=== PATIENT | female | born 1940 | race Caucasian/White ===

== ENCOUNTER 2018-01-23 19:00 | Observation (INO) | payer OTHER ==
--- NOTE | 2018-01-23 19:17 | PDOC ---
History of Present Illness - General History Source: Patient Exam Limitations: No Limitations - History of Present Illness Initial Comments: 01/23/18 20:04 A portion of this note was documented by scribe services under my direction. I have reviewed the details of the note, within reason, and agree with the documentation with the following case summary and management plan written by me. Patient treated in the ED. Nursing notes are reviewed and incorporated into the medical decision-making. Vital signs reviewed. Assessment and plan: This is 77-year-old female who comes in complaining of palpitations, dizziness,and mild nausea and approximate 3 hours of right upper extremity weakness. Patient also said it was preceded by headache however headache resolved shortly after onset of symptoms where his symptoms persisted about 3 hours. Patient said until symptoms have resolved at this. Patient denies history of similar symptoms in the past. Patient has history significant for mastoiditis in the past patient denies any associated tinnitus. Workup initiated including CBC, comp, EKG, cardiac enzymes, chest x-ray, head CT. NIH stroke scale was 0 Patient will be placed in an observation bed overnight for further evaluation and workup. <Emma Estrada I - Last Filed: 01/23/18 20:30> - History of Present Illness Initial Comments: This is a 77 year old female, with no significant past medical history, who presents to the emergency department today complaining of a headache and dizziness for a few hours earlier today. Patient notes around 3pm today she had a headache and began feeling as is if she was spinning while at work. She describes it as feeling disoriented, nauseous, inability to focus, and notes she did not have the strength in her right hand to write. She also states that her heart was beating faster than usual, and felt heavy in her chest. Patient notes that these symptoms lasted for approximately 3 hours. Patient reports feeling asymptomatic at this time, but does notes that she still feels strange . The patient denies shortness of breath. Denies fever, chills, vomit, diarrhea and constipation. Denies dysuria, frequency, urgency and hematuria. PAST MEDICAL HISTORY: no significant history PAST SURGICAL HISTORY: no significant history FAMILY HISTORY: DM SOCIAL HISTORY: Pt lives with family and is employed. Denies tobacco or recreational drug use. MEDICATIONS: reviewed ALLERGIES: As per nursing notes PCP: Dr. Kymberly CUNHA General: +Right upper extremity weakness. No fevers or chills, no weight loss. HEENT: No change in vision. No sore throat. No ear pain CardioVascular: +Palpitations. +Chest heaviness. No shortness of breath Respiratory: No cough, or wheezing. Gastrointestinal: +Mild nausea. no vomiting, diarrhea or constipation, No rectal bleeding Genitourinary: No dysuria, hematuria, or frequency Musculoskeletal: No joint or muscle pain or swelling Neurologic: +Headache. +Self-spinning dizziness. +Disoriented. +Inability to focus. No, vertigo or loss of consciousness. Psychiatric: nor depression Skin: No rashes or easy bruising Endocrine: no increased thirst or abnormal weight change Allergic: no skin or latex allergy All other systems reviewed and normal Exam: General: Well-nourished well-developed individual, no acute distress HEENT: Throat: Normal, tonsils normal, no erythema or exudate Neck: Supple, no meningeal signs, no lymphadenopathy Eyes::Pupils equal reactive and round, extraocular motion intact Chest: Nontender to palpation Cardiac: S1-S2 normal, regular rate and rhythm, no murmurs rubs or gallops Respiratory: Lungs clear to auscultation bilateral Abdomen: Soft, nondistended, normal bowel sounds, nontender to palpation diffusely Extremities: Warm, dry, no cyanosis, clubbing, or edema Skin: No rashes Neuro: Alert and oriented x3, nonfocal exam, grossly intact, normal gait Psych: Normal mood and affect 01/23/18 20:10 <China Cota - Last Filed: 01/23/18 21:50> - General Chief Complaint: Lightheaded Stated Complaint: DIZZY,FAST HEARTBEAT Time Seen by Provider: 01/23/18 19:14 Past History - Suicide/Smoking/Psychosocial Hx Smoking History: Never smoked Have you smoked in the past 12 months: No Hx Alcohol Use: No Drug/Substance Use Hx: No Substance Use Type: None Hx Substance Use Treatment: No <Emma Estrada I - Last Filed: 01/23/18 20:30> <China Cota - Last Filed: 01/23/18 21:50> - Past Medical History Allergies/Adverse Reactions: Allergies Allergy/AdvReac Type Severity Reaction Status Date / Time No Known Allergies Allergy Verified 01/23/18 19:01 Home Medications: Ambulatory Orders Zolpidem Tartrate [Ambien] 5 mg PO HS PRN 08/21/15 *Physical Exam - Vital Signs Last Vital Signs Temp Pulse Resp BP Pulse Ox 98.4 F 80 20 190/96 H 100 01/23/18 19:01 01/23/18 19:01 01/23/18 19:01 01/23/18 19:01 01/23/18 19:01 <China Cota - Last Filed: 01/23/18 21:50> Moderate Sedation - Procedure Monitoring Vital Signs: Procedure Monitoring Vital Signs Temperature 98.4 F 01/23/18 19:01 Pulse Rate 80 01/23/18 19:01 Respiratory Rate 20 01/23/18 19:01 Blood Pressure 190/96 H 01/23/18 19:01 O2 Sat by Pulse Oximetry (%) 100 01/23/18 19:01 <China Cota - Last Filed: 01/23/18 21:50> ED Treatment Course - LABORATORY CBC & Chemistry Diagram: 01/23/18 19:57 01/23/18 19:57 <Emma Estrada I - Last Filed: 01/23/18 20:30> - LABORATORY CBC & Chemistry Diagram: 01/23/18 19:57 01/23/18 19:57 - RADIOLOGY Radiograph Interpretation: 01/23/18 21:46 Chest X-Ray IMPRESSION: No acute disease. Reported By: Kulwinder Valencia MD 01/23/18 21:36. Head CT without contrast IMPRESSION: No evidence of intracranial pathology. Reported By: Kulwinder Valencia MD 01/23/18 21:21 01/23/18 21:49// <China Cota - Last Filed: 01/23/18 21:50> *DC/Admit/Observation/Transfer - Discharge Dispostion Decision to Admit order: Yes <Emma Estrada I - Last Filed: 01/23/18 20:30> - Attestations Scribe Attestion: 01/23/18 20:10 Documentation prepared by ANTONIO Zaman, acting as biomedical equipment technician for Emma Estrada MD. <China Cota - Last Filed: 01/23/18 21:50> Diagnosis at time of Disposition: TIA (transient ischemic attack)
[2018-01-23 20:11] LABS: URINE APPEARANCE Clear; URINE BILIRUBIN Negative (NEGATIVE); URINE COLOR Yellow; URINE GLUCOSE (UA) Negative (NEGATIVE); URINE KETONE Negative (NEGATIVE); URINE LEUK ESTERASE TRACE (NEGATIVE); URINE NITRITE Negative (NEGATIVE); URINE PROTEIN Negative (NEGATIVE); URINE UROBILINOGEN 0.2 (0.2-1.0)
[2018-01-23 20:11] LABS: BASO % 0.9 % (0-2.0); HEMATOCRIT 37.5 % (32.4-45.2); HEMOGLOBIN 12.2 GM/dl (10.7-15.3); LYMPH % 25.9 % (8-40); MCH 29.7 pg (25.7-33.7); MCHC 32.5 g/dl (32.0-36.0); MEAN CELL VOLUME 91.4 fl (80-96); MEAN PLT VOLUME 7.8 fl (7.5-11.1); MONO % 5.9 % (3.8-10.2); NEUT % 67.3 % (42.8-82.8); PLATELET COUNT 305 K/MM3 (134-434); RDW 13.2 % (11.6-15.6); WHITE BLOOD COUNT 3.8 K/mm3 (4.0-10.8)
[2018-01-23 20:27] LABS: ALBUMIN 4.5 g/dl (3.5-5.0); ALK PHOS 67 U/L (32-92); ANION GAP 8 MMOL/L (8-16); BILIRUBIN,TOTAL 0.6 mg/dl (0.2-1.0); BLOOD UREA NITROGEN 24 mg/dl (7-18); CALCIUM 9.8 mg/dl (8.4-10.2); CHLORIDE 103 mmol/L (98-107); CO2 26 mmol/L (22-28); CREATININE 0.7 mg/dl (0.6-1.3); GLUCOSE,RANDOM 95 mg/dl (74-106); POTASSIUM 3.7 mmol/L (3.5-5.1); SGOT/AST 20 U/L (10-42); SGPT/ALT 14 U/L (10-40); SODIUM 137 mmol/L (136-145); TOT PROT 6.8 g/dl (6.4-8.3)
[2018-01-23 21:14] LABS: URINE BACTERIA 1+ /hpf (NEGATIVE)
[2018-01-23] MEDS ORDERED: ACETAMINOPHEN 325 MG TABLET (FP) PO PRN (22:32)
[2018-01-23] MEDS: DOCUSATE SODIUM 100 MG CAPSULE (FP) PO SCH (22:49)
[2018-01-24] MEDS ORDERED: amLODIPine BESYLATE 5 MG TABLET (FP) PO STA (00:41)
--- NOTE | 2018-01-24 00:49 | HP ---
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 Pt reports right arm weakness, feeling "off balance", disoriented, visual disturbance and chest heaviness along with palpitations. she also had a brief headache which resolved after a few minutes. Pt had never experienced these symptoms before. After she became more oriented she decided to "GOOGLE" her symptoms and decided to proceed to local ED since may have had a "stroke". In Ed vitals were BP 169/68, HR 78, T 97.8, RR [address] negative for acute IC pathology. EKG NSR 75bpm, RBBB. Pt admitted for further workup of chest heaviness and palpitations. History Source: Patient Limitations to Obtaining History: No Limitations - Past Medical History ...: No - Past Surgical History Past Surgical History: Yes: Oopherectomy (right) - Smoking History Smoking history: Never smoked Have you smoked in the past 12 months: No - Alcohol/Substance Use Hx Alcohol Use: No History of Substance Use: reports: None - Social History Usual Living Arrangement: Yes: Alone ADL: Independent History of Recent Travel: No Home Medications - Allergies Allergies/Adverse Reactions: Allergies Allergy/AdvReac Type Severity Reaction Status Date / Time No Known Allergies Allergy Verified 01/23/18 19:01 - Home Medications Home Medications: Ambulatory Orders Zolpidem Tartrate [Ambien] 5 mg PO HS PRN 08/21/15 Family Disease History - Family Disease History Family Disease History: Other: Father ( (?) Leukemia), Mother ( (80) [place]), Sister (alive (82) h/o cervical cancer), Son (alive (49) DMII, [place]) Review of Systems - Review of Systems Constitutional: reports: No Symptoms Eyes: reports: Blurred Vision HENT: reports: No Symptoms Neck: reports: No Symptoms Cardiovascular: reports: Chest Pain, Palpitations Respiratory: reports: No Symptoms Gastrointestinal: reports: No Symptoms Genitourinary: reports: No Symptoms Breasts: reports: No Symptoms Reported Musculoskeletal: reports: No Symptoms Integumentary: reports: No Symptoms Neurological: reports: Change in Speech, Confusion, Dizziness, Headache, Weakness Endocrine: reports: No Symptoms Hematology/Lymphatic: reports: No Symptoms Psychiatric: reports: No Symptoms Physical Examination Vital Signs: Vital Signs Temperature 97.8 F 01/23/18 22:34 Pulse Rate 78 01/23/18 22:34 Respiratory Rate 20 01/23/18 22:34 Blood Pressure 169/68 01/23/18 22:34 O2 Sat by Pulse Oximetry (%) 100 01/23/18 22:34 Constitutional: Yes: Well Nourished, No Distress Eyes: Yes: Conjunctiva Clear, EOM Intact, PERRL HENT: Yes: Atraumatic, Normocephalic Neck: Yes: Supple, Trachea Midline Cardiovascular: Yes: Regular Rate and Rhythm Respiratory: Yes: Regular, CTA Bilaterally Gastrointestinal: Yes: Normal Bowel Sounds, Soft ...Rectal Exam: Yes: Deferred Musculoskeletal: Yes: WNL Extremities: Yes: WNL Edema: No Peripheral Pulses WNL: Yes Peripheral Pulses: Left Radial: 2+, Right Radial: 2+, Left Doralis Pedis: 2+, Right Dorsalis Pedis: 2+ Integumentary: Yes: WNL Neurological: Yes: Alert, Oriented ...Motor Strength: WNL Psychiatric: Yes: Alert, Oriented Labs: CBC, BMP 01/23/18 19:57 01/23/18 19:57 Imaging - Results Chest X-ray: Report Reviewed (CXR 01/23: no acute disease) Cat Scan: Report Reviewed (Head CT 01/23: no acute IC pathology) Problem List - Problems (1) Chest heaviness Assessment/Plan: echocardiogram ordered cards consult in AM serial trop Stress test if trops negative Code(s): R07.89 - OTHER CHEST PAIN (2) TIA (transient ischemic attack) Assessment/Plan: Start ASA 81mg Head CT negative f/u carotid doppler results Code(s): G45.9 - TRANSIENT CEREBRAL ISCHEMIC ATTACK, UNSPECIFIED (3) Chest pain Assessment/Plan: EKGs daily until d/c home continuous telemetry Code(s): R07.9 - CHEST PAIN, UNSPECIFIED Qualifiers: Chest pain type: unspecified Qualified Code(s): R07.9 - Chest pain, unspecified (4) DVT prophylaxis Assessment/Plan: Heparin SC TID OOB to chair Code(s): [id number] - Assessment/Plan bowel regimen with senna and colace Full code Visit type - Emergency Visit Emergency Visit: Yes ED Registration Date: 01/23/18 Care time: The patient presented to the Emergency Department on the above date and was hospitalized for further evaluation of their emergent condition. - New Patient This patient is new to me today: Yes Date on this admission: 01/24/18 - Critical Care Critical Care patient: No
[2018-01-24] MEDS: HEPARIN NA (PORCINE) 5,000 UNITS/ML 1ML VIAL SQ SCH ×3 (06:00→21:05)
[2018-01-24 08:20] LABS: BASO % 1.4 % (0-2.0); EOS % 0.1 % (0-4.5); HEMATOCRIT 38.2 % (32.4-45.2); HEMOGLOBIN 12.3 GM/dl (10.7-15.3); LYMPH % 29.6 % (8-40); MCH 29.5 pg (25.7-33.7); MCHC 32.2 g/dl (32.0-36.0); MEAN CELL VOLUME 91.7 fl (80-96); MEAN PLT VOLUME 8.2 fl (7.5-11.1); MONO % 6.5 % (3.8-10.2); NEUT % 62.4 % (42.8-82.8); PLATELET COUNT 322 K/MM3 (134-434); RBC 4.17 M/mm3 (3.60-5.2); RDW 13.4 % (11.6-15.6); WHITE BLOOD COUNT 3.1 K/mm3 (4.0-10.8)
[2018-01-24 08:57] LABS: ALBUMIN 3.9 g/dl (3.5-5.0); ALK PHOS 57 U/L (32-92); ANION GAP 5 MMOL/L (8-16); BILIRUBIN,TOTAL 0.6 mg/dl (0.2-1.0); BLOOD UREA NITROGEN 19 mg/dl (7-18); CALCIUM 9.4 mg/dl (8.4-10.2); CHLORIDE 104 mmol/L (98-107); CO2 27 mmol/L (22-28); CREATININE 0.7 mg/dl (0.6-1.3); GLUCOSE,RANDOM 96 mg/dl (74-106); MAGNESIUM 1.9 mg/dL (1.8-2.4); PHOSPHOROUS 3.7 mg/dl (2.5-4.6); POTASSIUM 4.7 mmol/L (3.5-5.1); SGOT/AST 17 U/L (10-42); SGPT/ALT 12 U/L (10-40); SODIUM 136 mmol/L (136-145); TOT PROT 5.9 g/dl (6.4-8.3)
[2018-01-24] MEDS ORDERED: PNEUMOC 13-VAL CONJ-DIP CRM/PF 0.5 ML DISP.SYRIN IM ONE (10:00)
[2018-01-24] MEDS: ASPIRIN COATED 81 MG TABLET.EC PO SCH (10:05)
[2018-01-24] MEDS: amLODIPine BESYLATE 5 MG TABLET (FP) PO SCH (10:05)
[2018-01-24] MEDS: DOCUSATE SODIUM 100 MG CAPSULE (FP) PO SCH ×2 (10:06→23:05)
--- NOTE | 2018-01-24 10:36 | CON.CARD ---
Consult Consult Specialty:: Cardiology Referred by:: Hospitalist Reason for Consultation:: Cardiac evaluation - History of Present Illness Chief Complaint: Dizziness History of Present Illness: Patient is a 77 year old female with no significant PMH who presented to ED with episode of confusion at work and feeling off balance, disoriented, dizzy and with visual disturbances. Patient states this was the first time for having these symptoms. She also stated some chest heaviness and palpitations. She also complained of brief headache which resolved. Her BP was elevated to 190's according to patient. Currently, she is asymptomatic. She denies chest pain, SOB or palpitations. She denies paroxsmal nocturnal dyspnea or orthopnea. She denies nausea, vomiting, diarrhea or abdominal pain. She denies headache or lightheadedness. Denies fever or chills. - History Source History Provided By: Patient, Medical Record Limitations to Obtaining History: No Limitations - Past Medical History ...: No - Past Surgical History Past Surgical History: Yes: Oopherectomy (right) - Alcohol/Substance Use Hx Alcohol Use: No History of Substance Use: reports: None - Smoking History Smoking history: Never smoked Have you smoked in the past 12 months: No - Social History ADL: Independent History of Recent Travel: No Home Medications - Allergies Allergies/Adverse Reactions: Allergies Allergy/AdvReac Type Severity Reaction Status Date / Time No Known Allergies Allergy Verified 01/23/18 19:01 - Home Medications Home Medications: Ambulatory Orders Zolpidem Tartrate [Ambien] 5 mg PO HS PRN 08/21/15 Family Disease History - Family Disease History Family Disease History: Other: Father ( (?) Leukemia), Mother ( (80) [place]), Sister (alive (82) h/o cervical cancer), Son (alive (49) DMII, [place]) Review of Systems - Review of Systems Constitutional: denies: Chills, Fever Cardiovascular: denies: Chest Pain, Palpitations, Shortness of Breath Respiratory: denies: Cough, Hemoptysis, Orthopnea, PND, SOB, SOB on Exertion Gastrointestinal: denies: Abdominal Pain, Constipation, Diarrhea, Melena, Nausea , Rectal Bleeding, Vomiting Musculoskeletal: denies: Back Pain, Extremity Pain, Joint Pain Neurological: reports: Confusion, Dizziness, Headache. denies: Seizure, Syncope Vital Signs: Vital Signs Temperature 97.5 F L 01/24/18 05:05 Pulse Rate 71 01/24/18 05:05 Respiratory Rate 20 01/24/18 05:52 Blood Pressure 136/57 L 01/24/18 05:05 O2 Sat by Pulse Oximetry (%) 100 01/24/18 05:52 Constitutional: Yes: Well Nourished Eyes: Yes: Conjunctiva Clear, PERRL HENT: Yes: Atraumatic Neck: Yes: Supple Respiratory: Yes: Regular, CTA Bilaterally Gastrointestinal: Yes: Normal Bowel Sounds, Soft. No: Tenderness Cardiovascular: Yes: Regular Rate and Rhythm JVD: No Carotid Bruit: No PMI: Non-Displaced Heart Sounds: Yes: S1, S2. No: Gallop Murmur: No: Systolic Murmur, Diastolic Murmur Edema: No - Other Data Labs, Other Data: CBC, BMP 01/24/18 07:35 Laboratory Results - last 24 hr 01/23/18 01/23/18 01/23/18 19:57 19:57 19:57 WBC 3.8 L RBC 4.10 Hgb 12.2 Hct 37.5 MCV 91.4 MCH 29.7 MCHC 32.5 RDW 13.2 Plt Count 305 MPV 7.8 Absolute Neuts (auto) 2.6 Neutrophils % 67.3 Lymphocytes % 25.9 Monocytes % 5.9 Eosinophils % 0.0 Basophils % 0.9 Sodium Potassium Chloride Carbon Dioxide Anion Gap BUN Creatinine Creat Clearance w eGFR Random Glucose Calcium Phosphorus Magnesium Total Bilirubin AST ALT Alkaline Phosphatase Creatine Kinase 91 Troponin I < 0.03 Total Protein Albumin Triglycerides Cholesterol Total LDL Cholesterol HDL Cholesterol Urine Color Urine Appearance Urine pH Ur Specific [place] Urine Protein Urine Glucose (UA) Urine Ketones Urine Blood Urine Nitrite Urine Bilirubin Urine Urobilinogen Ur Leukocyte Esterase Urine RBC Urine WBC Urine Bacteria 01/23/18 01/23/18 01/24/18 19:57 20:05 07:30 WBC RBC Hgb Hct MCV MCH MCHC RDW Plt Count MPV Absolute Neuts (auto) Neutrophils % Lymphocytes % Monocytes % Eosinophils % Basophils % Sodium 137 136 Potassium 3.7 4.7 D Chloride 103 104 Carbon Dioxide 26 27 Anion Gap 8 5 L BUN 24 H 19 H Creatinine 0.7 0.7 Creat Clearance w eGFR > 60 > 60 Random Glucose 95 96 Calcium 9.8 9.4 Phosphorus 3.7 Magnesium 1.9 Total Bilirubin 0.6 0.6 AST 20 17 ALT 14 12 Alkaline Phosphatase 67 57 D Creatine Kinase 54 Troponin I Total Protein 6.8 5.9 L Albumin 4.5 3.9 Triglycerides Cholesterol Total LDL Cholesterol HDL Cholesterol Urine Color Yellow Urine Appearance Clear Urine pH 7.0 Ur Specific [place] 1.020 Urine Protein Negative Urine Glucose (UA) Negative Urine Ketones Negative Urine Blood Trace-intact H Urine Nitrite Negative Urine Bilirubin Negative Urine Urobilinogen 0.2 Ur Leukocyte Esterase Trace H Urine RBC 2-5 Urine WBC 2-5 Urine Bacteria 1+ 01/24/18 01/24/18 01/24/18 07:30 07:35 07:35 WBC 3.1 L RBC 4.17 Hgb 12.3 Hct 38.2 MCV 91.7 MCH 29.5 MCHC 32.2 RDW 13.4 Plt Count 322 MPV 8.2 Absolute Neuts (auto) 2.0 Neutrophils % 62.4 Lymphocytes % 29.6 Monocytes % 6.5 Eosinophils % 0.1 Basophils % 1.4 Sodium Cancelled Potassium Cancelled Chloride Cancelled Carbon Dioxide Cancelled Anion Gap Cancelled BUN Cancelled Creatinine Cancelled Creat Clearance w eGFR Cancelled Random Glucose Cancelled Calcium Cancelled Phosphorus Cancelled Magnesium Cancelled Total Bilirubin Cancelled AST Cancelled ALT Cancelled Alkaline Phosphatase Cancelled Creatine Kinase Cancelled Troponin I < 0.03 Cancelled Total Protein Cancelled Albumin Cancelled Triglycerides Cancelled Cholesterol Cancelled Total LDL Cholesterol Cancelled HDL Cholesterol Cancelled Urine Color Urine Appearance Urine pH Ur Specific [place] Urine Protein Urine Glucose (UA) Urine Ketones Urine Blood Urine Nitrite Urine Bilirubin Urine Urobilinogen Ur Leukocyte Esterase Urine RBC Urine WBC Urine Bacteria Troponin, BNP 01/23/18 01/24/18 01/24/18 19:57 07:30 07:35 Troponin I < 0.03 < 0.03 Cancelled Echo: Pending Imaging - Results Chest X-ray: Report Reviewed (Unremarlable) Ultrasound: Report Reviewed (Carotid Doppler-atherosclerotic plaque) EKG: Report Reviewed Problem List - Problems (1) TIA (transient ischemic attack) Code(s): G45.9 - TRANSIENT CEREBRAL ISCHEMIC ATTACK, UNSPECIFIED (2) Chest pain Code(s): R07.9 - CHEST PAIN, UNSPECIFIED Qualifiers: Chest pain type: unspecified Qualified Code(s): R07.9 - Chest pain, unspecified (3) HTN (hypertension) Code(s): I10 - ESSENTIAL (PRIMARY) HYPERTENSION (4) Carotid artery disease Code(s): I77.9 - DISORDER OF ARTERIES AND ARTERIOLES, UNSPECIFIED Assessment/Plan 1. Transient dizziness, headache and confusion, rule out TIA 2. Chest pain syndrome, atypical 3. HTN 4. Carotid artery disease 5. ? Anxiety PLAN: 1. Cardiac enzymes are normal. Await echocardiography to assess LV/RV and valvular function 2. ASA 3. Continue Amlodipine 4. Further cardiac work up including treadmill stress testing and if negative discharge planning Further plans are to follow Ike Blanchard MD
--- NOTE | 2018-01-24 13:02 | EKG ---
Test Reason : Blood Pressure : / mmHG Vent. Rate : 075 BPM Atrial Rate : 075 BPM P-R Int : 156 ms QRS Dur : 136 ms QT Int : 434 ms P-R-T Axes : 053 031 -04 degrees QTc Int : 484 ms NORMAL SINUS RHYTHM RIGHT BUNDLE BRANCH BLOCK T WAVE ABNORMALITY, CONSIDER INFERIOR ISCHEMIA ABNORMAL ECG WHEN COMPARED WITH ECG OF 21-AUG-2015 09:14, RIGHT BUNDLE BRANCH BLOCK HAS REPLACED INCOMPLETE RIGHT BUNDLE BRANCH BLOCK Confirmed by Lars Chawla ([id number]) on 01/24/2018 1:02:41 PM Referred By: RERE Confirmed By:Lars Chawla
--- NOTE | 2018-01-24 14:25 | TRE ---
Protocol Name : LI Max Work Load (METS*10) : 80 Time In Exercise Phase : 00:06:42 Max. Systolic BP : 162 mmHg Max Diastolic BP : 60 mmHg Max Heart Rate : 148 BPM Max Predicted Heart Rate : 143 BPM Attending Physician : DR. CHAMBERS Reason For Termination : PROTOCOL COMPLETED, TARGET HEART RATE AVHIEVED Reason for Test : DIZZINESS, PALPITATION Stress Protocol : LI Rest HR : 99 BPM PeakEx METs : 8.0 METS Recovery ECG Response (OLD) : Diagnosis : The patient was stressed by the li protocol. Exercised on the treadmill for 6:42 min of the Li protocol. Baseline HR was 95 bpm, achieved maximum HR 148bpm (103%MPHR). Baseline BP 122/60mmHg, maximum BP 162/60mmHg Stopped exercise when target R was achieved. Resting ECG: NSR, RBBB Stress ECmm upsloping ST segment depressions in V4-V6 during exercise which resolved during recovery. Impressions Average exercise capacity with exagerated HR response and normal BP response to exercise. Abnormal ECG response with ischemic ECG changes during exercise. Confirmed by Lars Chawla ([id number]) on 01/24/2018 2:25:19 PM
--- NOTE | 2018-01-24 15:21 | ECHO ---
Name: EULOGIO MOORE Exam:Adult Echocardiogram Study Date: 01/24/2018 10:55 AM Age: 77 yrs Reason For Study: PT REPORTS CHEST HEAVINESS AND PALPITATIONS Height: 62 in Weight: 106 lb BSA: 1.5 m2 MMode/2D Measurements & Calculations IVSd: 0.81 cm Ao root diam: 2.5 cm LVIDd: 3.9 cm LA dimension: 2.8 cm LVIDs: 2.8 cm LVPWd: 0.71 cm EDV(Teich): 64.9 ml TAPSE: 2.6 cm ESV(Teich): 30.3 ml Doppler Measurements & Calculations MV E max natty: 53.3 cm/sec Ao V2 max: 121.8 cm/sec MV A max natty: 85.4 cm/sec Ao max P.9 mmHg MV E/A: 0.62 AI P1/2t: 455.0 msec MV dec time: 0.22 sec AI max natty: 439.8 cm/sec LV V1 max P.2 mmHg AI max P.4 mmHg LV V1 max: 74.7 cm/sec AI dec slope: 283.1 cm/sec2 MR max natty: 252.2 cm/sec TR max natty: 202.2 cm/sec MR max P.4 mmHg TR max P.4 mmHg PI end-d natty: 94.6 cm/sec Procedure A complete two-dimensional transthoracic echocardiogram was performed (2D, M-mode, Doppler and color flow Doppler). Left Ventricle The left ventricle is normal in size. Left ventricular systolic function is normal. The transmitral s pectral Doppler flow pattern is suggestive of impaired LV relaxation. The left ventricular wall motion is nor mal. Right Ventricle The right ventricle is normal size. The right ventricular systolic function is normal. Atria The left atrial size is normal. Right atrial size is normal. Mitral Valve The mitral valve is normal in structure and function. There is no mitral regurgitation noted. Tricuspid Valve The tricuspid valve is normal in structure and function. No tricuspid regurgitation. Right ventricula r systolic pressure is normal. Aortic Valve The aortic valve is normal in structure and function. Mild aortic regurgitation. Pulmonic Valve The pulmonic valve is not well seen, but is grossly normal. Great Vessels The aortic root is normal size. Pericardium/Pleura There is no pericardial effusion. Interpretation Summary Left ventricular systolic function is normal. The transmitral spectral Doppler flow pattern is suggestive of impaired LV relaxation. The right ventricular systolic function is normal. Mild aortic regurgitation. Lars Chawla 01/24/2018 03:21 PM
--- NOTE | 2018-01-24 16:26 | PN ---
Physical Exam: SUBJECTIVE: Patient seen and examined at bedside. Sons present. Feels well. No further episodes of lightheadedness or palpitations. OBJECTIVE: Vital Signs Period Temp Pulse Resp BP Sys/Iqbal Pulse Ox Last 24 Hr 97.4 F-98.6 F 70-89 16-20 108-190/56-96 95-100 GENERAL: The patient is awake, alert, and fully oriented, in no acute distress. LUNGS: Breath sounds equal, clear to auscultation bilaterally, no wheezes, no crackles, no accessory muscle use. HEART: Regular rate and rhythm, S1, S2 without murmur, rub or gallop. ABDOMEN: Soft, nontender, nondistended EXTREMITIES: 2+ pulses, warm, well-perfused, no edema. NEUROLOGICAL: Cranial nerves II through XII grossly intact. Normal speech, gait not observed. Self-positions easily. PSYCH: Normal mood, normal affect. SKIN: Warm, dry, normal turgor, no rashes or lesions noted Laboratory Results - last 24 hr 01/23/18 01/23/18 01/23/18 19:57 19:57 19:57 WBC 3.8 L RBC 4.10 Hgb 12.2 Hct 37.5 MCV 91.4 MCH 29.7 MCHC 32.5 RDW 13.2 Plt Count 305 MPV 7.8 Absolute Neuts (auto) 2.6 Neutrophils % 67.3 Lymphocytes % 25.9 Monocytes % 5.9 Eosinophils % 0.0 Basophils % 0.9 Sodium Potassium Chloride Carbon Dioxide Anion Gap BUN Creatinine Creat Clearance w eGFR Random Glucose Calcium Phosphorus Magnesium Total Bilirubin AST ALT Alkaline Phosphatase Creatine Kinase 91 Troponin I < 0.03 Total Protein Albumin Triglycerides Cholesterol Total LDL Cholesterol HDL Cholesterol Urine Color Urine Appearance Urine pH Ur Specific [place] Urine Protein Urine Glucose (UA) Urine Ketones Urine Blood Urine Nitrite Urine Bilirubin Urine Urobilinogen Ur Leukocyte Esterase Urine RBC Urine WBC Urine Bacteria 01/23/18 01/23/18 01/24/18 19:57 20:05 07:30 WBC RBC Hgb Hct MCV MCH MCHC RDW Plt Count MPV Absolute Neuts (auto) Neutrophils % Lymphocytes % Monocytes % Eosinophils % Basophils % Sodium 137 136 Potassium 3.7 4.7 D Chloride 103 104 Carbon Dioxide 26 27 Anion Gap 8 5 L BUN 24 H 19 H Creatinine 0.7 0.7 Creat Clearance w eGFR > 60 > 60 Random Glucose 95 96 Calcium 9.8 9.4 Phosphorus 3.7 Magnesium 1.9 Total Bilirubin 0.6 0.6 AST 20 17 ALT 14 12 Alkaline Phosphatase 67 57 D Creatine Kinase 54 Troponin I Total Protein 6.8 5.9 L Albumin 4.5 3.9 Triglycerides Cholesterol Total LDL Cholesterol HDL Cholesterol Urine Color Yellow Urine Appearance Clear Urine pH 7.0 Ur Specific [place] 1.020 Urine Protein Negative Urine Glucose (UA) Negative Urine Ketones Negative Urine Blood Trace-intact H Urine Nitrite Negative Urine Bilirubin Negative Urine Urobilinogen 0.2 Ur Leukocyte Esterase Trace H Urine RBC 2-5 Urine WBC 2-5 Urine Bacteria 1+ 01/24/18 01/24/18 01/24/18 07:30 07:35 07:35 WBC 3.1 L RBC 4.17 Hgb 12.3 Hct 38.2 MCV 91.7 MCH 29.5 MCHC 32.2 RDW 13.4 Plt Count 322 MPV 8.2 Absolute Neuts (auto) 2.0 Neutrophils % 62.4 Lymphocytes % 29.6 Monocytes % 6.5 Eosinophils % 0.1 Basophils % 1.4 Sodium Cancelled Potassium Cancelled Chloride Cancelled Carbon Dioxide Cancelled Anion Gap Cancelled BUN Cancelled Creatinine Cancelled Creat Clearance w eGFR Cancelled Random Glucose Cancelled Calcium Cancelled Phosphorus Cancelled Magnesium Cancelled Total Bilirubin Cancelled AST Cancelled ALT Cancelled Alkaline Phosphatase Cancelled Creatine Kinase Cancelled Troponin I < 0.03 Cancelled Total Protein Cancelled Albumin Cancelled Triglycerides Cancelled Cholesterol Cancelled Total LDL Cholesterol Cancelled HDL Cholesterol Cancelled Urine Color Urine Appearance Urine pH Ur Specific [place] Urine Protein Urine Glucose (UA) Urine Ketones Urine Blood Urine Nitrite Urine Bilirubin Urine Urobilinogen Ur Leukocyte Esterase Urine RBC Urine WBC Urine Bacteria Active Medications Generic Name Dose Route Start Last Admin Trade Name Freq PRN Reason Stop Dose Admin Acetaminophen 650 mg 01/23/18 22:32 Tylenol - PO Q6H PRN PAIN LEVEL 4 - 6 Amlodipine Besylate 5 mg 01/24/18 10:00 01/24/18 10:05 Norvasc - PO 5 mg DAILY [facility] Administration Aspirin 81 mg 01/24/18 10:00 01/24/18 10:05 Ecotrin - PO 81 mg DAILY [facility] Administration Docusate Sodium 100 mg 01/23/18 22:45 01/24/18 10:06 Colace - PO Not Given BID [facility] Heparin Sodium (Porcine) 5,000 unit 01/24/18 06:00 Heparin - SQ TID [facility] Senna 2 tab 01/24/18 22:00 Senna - PO HS [facility] ASSESSMENT/PLAN 77 year-old woman with no significant reported PMH and who sees her PCP Dr. Traylor on a regular basis. Confusion, palpitations, SOB --01/23 ECG: SR @ 75bpm, TWI II, II, AVF, V1-V3 --troponins neg x 2 --CXR unremarkable --01/24 Echo: LV systolic function normal, impaired relaxation; RV normal; mild AI --01/24 EST: reached 103% MPHR, ischemic ECG changes, ST segment depressions V4--V6, resolved during recovery --discussed findings with cardiology, Dr. Blanchard, plan is for nuclear stress tomorrow --patient remains asymptomatic --continue ASA --patient had echo and stress done in July or August of this year, Dr. Burrell conducted the testing; will get records Elevated blood pressure --no previous history --very elevated on admission, today somewhat labile --continue amlodipine 5mg, titrate as needed FEN Fluids: PO intake adequate Electrolytes: replete as indicated Nutrition: low sodium; NPO after midnight for stress tomorrow DVT prophylaxis: subq heparin Dispo: continues to require inpatient care. Full code. Visit type - Emergency Visit Emergency Visit: Yes ED Registration Date: 01/23/18 Care time: The patient presented to the Emergency Department on the above date and was hospitalized for further evaluation of their emergent condition. - New Patient This patient is new to me today: Yes Date on this admission: 01/24/18 - Critical Care Critical Care patient: No
--- NOTE | 2018-01-24 18:43 | CON.NEURO ---
Consult Consult Specialty:: Neurology Referred by:: Shaye Malin Reason for Consultation:: Transient Neurologic Dysfunction - History of Present Illness Chief Complaint: I was out of sorts History of Present Illness: 77 year old woman was at her office yesterday when she started to feel strange, felt out of sorts, off balance, chest heaviness, and had trouble focusing. She felt a little numbness at the corner of the left side of her mouth but no other focal neurologic dysfunction. She had never had anything like this happen to her before. She ultimately went home, called her son who took her to the ER at [facility]. She says that she gradually felt back to herself, but that the entire episode lasted several hours. she feels wel now. - History Source History Provided By: Patient, Medical Record Limitations to Obtaining History: No Limitations - Past Medical History ...: No - Past Surgical History Past Surgical History: Yes: Oopherectomy (right) - Alcohol/Substance Use Hx Alcohol Use: No History of Substance Use: reports: None - Smoking History Smoking history: Never smoked Have you smoked in the past 12 months: No - Social History ADL: Independent History of Recent Travel: No Home Medications - Allergies Allergies/Adverse Reactions: Allergies Allergy/AdvReac Type Severity Reaction Status Date / Time No Known Allergies Allergy Verified 01/23/18 19:01 - Home Medications Home Medications: Ambulatory Orders Zolpidem Tartrate [Ambien] 5 mg PO HS PRN 08/21/15 Family Disease History - Family Disease History Family Disease History: Other: Father ( (?) Leukemia), Mother ( (80) [place]), Sister (alive (82) h/o cervical cancer), Son (alive (49) DMII, [place]) Physical Exam-Neuro Vital Signs: Vital Signs Temperature 97.9 F 01/24/18 18:00 Pulse Rate 86 01/24/18 18:00 Respiratory Rate 18 01/24/18 18:00 Blood Pressure 135/75 01/24/18 18:00 O2 Sat by Pulse Oximetry (%) 98 01/24/18 18:00 Labs: CBC, BMP 01/24/18 07:35 01/24/18 07:35 - Neuro Exam Level Of Consciousness: Yes: Alert, Oriented to Person, Oriented to Place, Oriented to Time Eyes: Yes: MADELEINE Speech: WNL Cranial Nerves II-XII Intact: Yes DTR's: 0 Left Achilles, 0 Right Achilles, 2+ Left Bicep, 2+ Right Bicep, 2+ Left Tricep, 2+ Right Tricep, 2+ Left Brachioradialis, 2+ Right Brachioradialis Babinski: Absent Response to light touch: Normal Motor Strength: 5/5: Left Arm, Right Arm, Left Leg, Right Leg Gait: Normal NIH Stroke Scale - Initial Evaluation Level of consciousness: Alert Ask patient the month and their age: Answers both correctly Ask patient to open & close eyes; make fist and let go: Obeys both correctly Best gaze (horizontal eye movement): Normal Visual field testing: No visual field loss Facial paresis (Show teeth/raise eyebrows/close eyes tight): Normal symmetrical movement Motor Function: Left Arm: Normal Motor Function: Right Arm: Normal (extends arm 90 (or 45) degrees for 10 seconds without drift Motor Function: Left Leg: Normal (extends leg 30 degrees for 5 seconds without drift) Motor Function: Right Leg: Normal (extends leg 30 degrees for 5 seconds without drift) Limb Ataxia: No ataxia Sensory(Use pinprick test arms,legs,trunk,face/side to side): Normal Best language (Describe picture, name items, read sentences): No Aphasia Dysarthria (read several words): Normal articulation Extinction and Inattention: No abnormality - Total Score NIH Stroke Scale Score: 0 Imaging - Results Cat Scan: Report Reviewed, Image Reviewed (normal) Ultrasound: Report Reviewed (mild plaque, but no hemodynamically significant lesion.) Problem List - Problems (1) TIA (transient ischemic attack) Code(s): G45.9 - TRANSIENT CEREBRAL ISCHEMIC ATTACK, UNSPECIFIED Assessment/Plan It sounds like there was some transient neurologic dysfunction, though it sounds like it may have been in the setting of cardiac arrhythmia, based on her other symptoms. I would suggest having her take aspirin 81 mg daily, and cardiac workup as you are doing. Perhaps loop monitor as outpatient. I don't think that her carotid disease is significant here. We can f/u as an outpatient. Thanks. Please call if further questions arise.
[2018-01-24] MEDS ORDERED: SENNOSIDES 8.6MG TABLET (FP) PO SCH (22:00)
[2018-01-25] MEDS: HEPARIN NA (PORCINE) 5,000 UNITS/ML 1ML VIAL SQ SCH ×2 (06:06→14:45)
[2018-01-25 06:15] VITALS: PULSE 72; TEMP 98.2
[2018-01-25 08:06] LABS: ALBUMIN 3.6 g/dl (3.5-5.0); ALK PHOS 53 U/L (32-92); ANION GAP 7 MMOL/L (8-16); BILIRUBIN,TOTAL 0.6 mg/dl (0.2-1.0); BLOOD UREA NITROGEN 21 mg/dl (7-18); CALCIUM 9.2 mg/dl (8.4-10.2); CHLORIDE 106 mmol/L (98-107); CO2 25 mmol/L (22-28); CREATININE 0.6 mg/dl (0.6-1.3); GLUCOSE,RANDOM 94 mg/dl (74-106); MAGNESIUM 1.8 mg/dL (1.8-2.4); POTASSIUM 4.1 mmol/L (3.5-5.1); SGOT/AST 15 U/L (10-42); SGPT/ALT 12 U/L (10-40); SODIUM 138 mmol/L (136-145); TOT PROT 5.7 g/dl (6.4-8.3)
[2018-01-25] MEDS: DOCUSATE SODIUM 100 MG CAPSULE (FP) PO SCH (08:59)
[2018-01-25] MEDS: ASPIRIN COATED 81 MG TABLET.EC PO SCH (08:59)
[2018-01-25] MEDS: amLODIPine BESYLATE 5 MG TABLET (FP) PO SCH (08:59)
--- NOTE | 2018-01-25 09:02 | PN ---
Physical Exam: SUBJECTIVE: Patient seen and examined oob. Earlier seen ambulating in hallway. No further episodes of lightheadedness, palpitations. OBJECTIVE: Vital Signs Period Temp Pulse Resp BP Sys/Iqbal Pulse Ox Last 24 Hr 97.9 F-98.6 F 70-89 18-20 108-153/56-75 95-99 GENERAL: The patient is awake, alert, and fully oriented, in no acute distress. LUNGS: Breath sounds equal, clear to auscultation bilaterally, no wheezes, no crackles, no accessory muscle use. HEART: Regular rate and rhythm, S1, S2 without murmur, rub or gallop. ABDOMEN: Soft, nontender, nondistended EXTREMITIES: 2+ pulses, warm, well-perfused, no edema. NEUROLOGICAL: Cranial nerves II through XII grossly intact. Normal speech, gait not observed. Self-positions easily. PSYCH: Normal mood, normal affect. SKIN: Warm, dry, normal turgor, no rashes or lesions noted Laboratory Results - last 24 hr 01/24/18 01/24/18 01/24/18 07:30 07:30 07:35 Sodium 136 Cancelled Potassium 4.7 D Cancelled Chloride 104 Cancelled Carbon Dioxide 27 Cancelled Anion Gap 5 L Cancelled BUN 19 H Cancelled Creatinine 0.7 Cancelled Creat Clearance w eGFR > 60 Cancelled Random Glucose 96 Cancelled Calcium 9.4 Cancelled Phosphorus 3.7 Cancelled Magnesium 1.9 Cancelled Total Bilirubin 0.6 Cancelled AST 17 Cancelled ALT 12 Cancelled Alkaline Phosphatase 57 D Cancelled Creatine Kinase 54 Cancelled Troponin I < 0.03 Cancelled Total Protein 5.9 L Cancelled Albumin 3.9 Cancelled Triglycerides Cancelled Cholesterol Cancelled Total LDL Cholesterol Cancelled HDL Cholesterol Cancelled 01/25/18 07:15 Sodium 138 Potassium 4.1 Chloride 106 Carbon Dioxide 25 Anion Gap 7 L BUN 21 H Creatinine 0.6 Creat Clearance w eGFR > 60 Random Glucose 94 Calcium 9.2 Phosphorus Magnesium 1.8 Total Bilirubin 0.6 AST 15 ALT 12 Alkaline Phosphatase 53 Creatine Kinase Troponin I Total Protein 5.7 L Albumin 3.6 Triglycerides Cholesterol Total LDL Cholesterol HDL Cholesterol Active Medications Generic Name Dose Route Start Last Admin Trade Name Freq PRN Reason Stop Dose Admin Acetaminophen 650 mg 01/23/18 22:32 Tylenol - PO Q6H PRN PAIN LEVEL 4 - 6 Amlodipine Besylate 5 mg 12/11/18 10:00 01/25/18 08:59 Norvasc - PO 5 mg DAILY [facility] Administration Aspirin 81 mg 01/24/18 10:00 01/25/18 08:59 Ecotrin - PO 81 mg DAILY [facility] Administration Docusate Sodium 100 mg 01/23/18 22:45 01/25/18 08:59 Colace - PO Not Given BID [facility] Heparin Sodium (Porcine) 5,000 unit 01/24/18 06:00 01/25/18 06:06 Heparin - SQ 5,000 unit TID [facility] Administration Senna 2 tab 01/24/18 22:00 01/24/18 23:05 Senna - PO Not Given HS [facility] ASSESSMENT/PLAN: 77 year-old woman with no significant reported PMH and who sees her PCP Dr. Traylor on a regular basis. Admitted for confusion, palpitations x several hours. Confusion, palpitations, SOB --01/23 ECG: SR @ 75bpm, TWI II, II, AVF, V1-V3 --troponins neg x 2 --CXR unremarkable --01/24 Echo: LV systolic function normal, impaired relaxation; RV normal; mild AI --01/24 EST: reached 103% MPHR, ischemic ECG changes, ST segment depressions V4--V6, resolved during recovery --discussed findings with cardiology, Dr. Blanchard, plan is for nuclear stress today --short runs of v-tach on telemetry, patient remains asymptomatic --continue ASA --patient had echo and stress done in July or August of this year, getting records from Dr. Burrell Elevated blood pressure --no previous history --continue amlodipine 5mg, titrate as needed FEN Fluids: PO intake adequate Electrolytes: replete as indicated Nutrition: low sodium DVT prophylaxis: subq heparin Dispo: continues to require inpatient care. Full code. Visit type - Emergency Visit Emergency Visit: Yes ED Registration Date: 01/23/18 Care time: The patient presented to the Emergency Department on the above date and was hospitalized for further evaluation of their emergent condition. - New Patient This patient is new to me today: No - Critical Care Critical Care patient: No
[2018-01-25 09:06] VITALS: BMI 19.2
[2018-01-25 10:15] VITALS: BP 132/72
--- NOTE | 2018-01-25 11:27 | PN ---
Progress Note, Physician History of Present Illness: No further chest discomfort, palpitations or neurologic deficits. Undergoing stress testing. - Current Medication List Current Medications: Active Medications Acetaminophen (Tylenol -) 650 mg PO Q6H PRN PRN Reason: PAIN LEVEL 4 - 6 Amlodipine Besylate (Norvasc -) 5 mg PO DAILY [facility] Last Admin: 01/25/18 08:59 Dose: 5 mg Aspirin (Ecotrin -) 81 mg PO DAILY [facility] Last Admin: 01/25/18 08:59 Dose: 81 mg Docusate Sodium (Colace -) 100 mg PO BID [facility] Last Admin: 01/25/18 08:59 Dose: Not Given Heparin Sodium (Porcine) (Heparin -) 5,000 unit SQ TID [facility] Last Admin: 01/25/18 06:06 Dose: 5,000 unit Senna (Senna -) 2 tab PO HS [facility] Last Admin: 01/24/18 23:05 Dose: Not Given - Objective Vital Signs: Vital Signs Temperature 98.2 F 01/25/18 06:13 Pulse Rate 72 01/25/18 10:15 Respiratory Rate 18 01/25/18 10:15 Blood Pressure 132/72 01/25/18 10:15 O2 Sat by Pulse Oximetry (%) 99 01/25/18 06:13 Constitutional: Yes: No Distress, Calm, Thin Neck: Yes: Supple Cardiovascular: Yes: Regular Rate and Rhythm Respiratory: Yes: Regular, CTA Bilaterally Gastrointestinal: Yes: Normal Bowel Sounds, Soft Edema: No Labs: CBC, BMP 01/24/18 07:35 01/25/18 07:15 - ....Imaging Cat Scan: Report Reviewed (HCT: No acute changes) Ultrasound: Report Reviewed (No sig carotid stenosis, small plaques L>R) Problem List - Problems (1) Carotid artery disease Code(s): I77.9 - DISORDER OF ARTERIES AND ARTERIOLES, UNSPECIFIED Qualifiers: Carotid artery disease type: unspecified Laterality: left Qualified Code( s): I77.9 - Disorder of arteries and arterioles, unspecified (2) HTN (hypertension) Code(s): I10 - ESSENTIAL (PRIMARY) HYPERTENSION (3) TIA (transient ischemic attack) Code(s): G45.9 - TRANSIENT CEREBRAL ISCHEMIC ATTACK, UNSPECIFIED (4) Chest pain Code(s): R07.9 - CHEST PAIN, UNSPECIFIED Qualifiers: Chest pain type: unspecified Qualified Code(s): R07.9 - Chest pain, unspecified Assessment/Plan 01/24/2018 Echo: Normal LV and RV size and fxn, abnl LV compliance, mild AR ETT: Lateral ST changes during peak stress 1. Transient dizziness, headache and confusion, rule out TIA 2. Chest pain syndrome, atypical with abnormal ETT 3. HTN 4. Carotid plaque L>R 5. ? Anxiety PLAN: 1. Ruled out for OR. Reviewed echocardiography and ETT results with patient, awaiting nuclear stress results 2. Continue ASA 81 qd, Amlodipine 5 qd 3. Prolonged arrhythmia monitor as outpatient has been recommended by neurology
[2018-01-25 13:02] LABS: CHOLESTEROL 199 mg/dl; HDL CHOLESTEROL 75 mg/dl (29-89); TRIGLYCERIDES 44 mg/dl (35-160)
[2018-01-25 13:20] LABS: LDL CHOLESTEROL (ONLY DFH) 115 mg/dl (0-100)
--- NOTE | 2018-01-25 15:34 | DS ---
Physical Exam: SUBJECTIVE: Patient seen and examined. Back from nuclear stress. Feels well. No recurrence of symptoms during hospital stay. OBJECTIVE: Vital Signs Period Temp Pulse Resp BP Sys/Iqbal Pulse Ox Last 24 Hr 97.9 F-98.2 F 72-86 18-20 122-143/58-75 98-99 PHYSICAL EXAM GENERAL: The patient is awake, alert, and fully oriented, in no acute distress. LUNGS: Breath sounds equal, clear to auscultation bilaterally, no wheezes, no crackles, no accessory muscle use. HEART: Regular rate and rhythm, S1, S2 without murmur, rub or gallop. ABDOMEN: Soft, nontender, nondistended EXTREMITIES: 2+ pulses, warm, well-perfused, no edema. NEUROLOGICAL: Cranial nerves II through XII grossly intact. Normal speech, gait not observed. Self-positions easily. PSYCH: Normal mood, normal affect. SKIN: Warm, dry, normal turgor, no rashes or lesions noted LABS Laboratory Results - last 24 hr 01/25/18 01/25/18 07:15 12:35 Sodium 138 Potassium 4.1 Chloride 106 Carbon Dioxide 25 Anion Gap 7 L BUN 21 H Creatinine 0.6 Creat Clearance w eGFR > 60 Random Glucose 94 Calcium 9.2 Magnesium 1.8 Total Bilirubin 0.6 AST 15 ALT 12 Alkaline Phosphatase 53 Total Protein 5.7 L Albumin 3.6 Triglycerides 44 Cholesterol 199 Total LDL Cholesterol 115 H HDL Cholesterol 75 HOSPITAL COURSE: Date of Admission:01/23/18 Date of Discharge: 01/25/18 Pre hospital course 77 year-old female with no significant PMH presented to ED for evaluation in the setting of 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 Pt reported right arm weakness, feeling "off balance", disoriented, visual disturbance and chest heaviness along with palpitations. She also had a brief headache which resolved after a few minutes. Pt had never experienced these symptoms before. After she became more oriented she decided to "GOOGLE" her symptoms and decided to proceed to local ED since may have had a "stroke". ED course In Ed vitals were BP 169/68, HR 78, T 97.8, RR [address] negative for acute IC pathology. EKG NSR 75bpm, RBBB. Subsequent hospital course 77 year-old woman with no significant reported PMH and who sees her PCP Dr. Traylor on a regular basis. Admitted for confusion, palpitations x several hours. Confusion, palpitations, SOB --01/23 ECG: SR @ 75bpm, TWI II, II, AVF, V1-V3 --troponins neg x 2 --CXR unremarkable --CT head negative for acute pathology --01/24 Echo: LV systolic function normal, impaired relaxation; RV normal; mild AI --01/24 EST: reached 103% MPHR, ischemic ECG changes, ST segment depressions V4--V6, resolved during recovery --01/25 Nuclear stress: negative; had nuclear stress 02/2017 also wnl --seen and evaluated by neuro and by cardiology; close outpatient followup, will get event monitor Elevated blood pressure --no previous history --started on amlodipine 5mg, discharged with a prescription and outpatient followup Minutes to complete discharge: 35 Discharge Summary Reason For Visit: TIA Current Active Problems Carotid artery disease (Acute) Chest heaviness (Acute) HTN (hypertension) (Acute) TIA (transient ischemic attack) (Acute) Condition: Improved - Instructions Diet, Activity, Other Instructions: A prescription has been sent to your pharmacy for amlodipine for your elevated blood pressure. We recommend you take this medication as directed until you follow up with Dr. Traylor (primary care) and/or Drs. Beach or Lo (cardiologists) . Return to the emergency department for any new or worsening symptoms. Referrals: Maryse Traylor MD [Staff Physician] - 1 Week Rinku Beach MD [Non Staff, Medical] - 1 Week Disposition: HOME - Home Medications Comprehensive Discharge Medication List: Ambulatory Orders Zolpidem Tartrate [Ambien] 5 mg PO HS PRN 08/21/15 Amlodipine Besylate [Norvasc -] 5 mg PO DAILY #30 tablet 01/25/18 This patient is new to me today: No Emergency Visit: Yes ED Registration Date: 01/23/18 Care time: The patient presented to the Emergency Department on the above date and was hospitalized for further evaluation of their emergent condition. Critical Care patient: No - Discharge Referral Referred to [facility] Med [facility] No
== END 2018-01-25 16:00 | disposition home or self-care (01) ==
LOC: FER 19:00 → INTOOBSV 21:58 → FM/S 21:58 → UNDOADMOB 21:58 → FM/S 22:32
PROVIDERS: ADMIT Hospitalist; ATTEND Nurse Practitioner Acute Care
PROC: 3E013GC Introduction of Other Therapeutic Substance into Subcutaneous Tissue, Percutaneous Approach (ICD-10-PCS; principal; 2018-01-23)
DX: G45.9 Transient cerebral ischemic attack, unspecified (principal); I77.89 Other specified disorders of arteries and arterioles; R07.9 Chest pain, unspecified; I10 Essential (primary) hypertension; Z90.721 Acquired absence of ovaries, unilateral
CPT/HCPCS: 36415; 70450-TC; 71045-TC-FY; 78452-TC; 80053; 80061; 81003; 81015; 82550; 83735; 84100; 84443; 84484; 85025; 93005; 93017; 93018; 93306-TC; 93880-TC; 96372; 99283-25; A9502; G0378; J1644

== ENCOUNTER 2020-08-21 11:31 | Inpatient (IN) | payer OTHER ==
[2020-08-21] MEDS ORDERED: SODIUM CHLORIDE 0.9% 500 ML INFUS.BAG IV ONE (13:12)
[2020-08-21 13:26] LABS: BASO % 0.7 % (0-2.0); EOS % 0.1 % (0-4.5); HEMATOCRIT 39.9 % (32.4-45.2); HEMOGLOBIN 13.3 GM/dL (10.7-15.3); LYMPH % 25.3 % (8-40); MCH 29.8 pg (25.7-33.7); MCHC 33.2 g/dl (32.0-36.0); MEAN CELL VOLUME 89.6 fl (80-96); MEAN PLT VOLUME 8.5 fl (7.5-11.1); MONO % 6.3 % (3.8-10.2); NEUT % 67.6 % (42.8-82.8); PLATELET COUNT 337 10^3/uL (134-434); RBC 4.45 M/mm3 (3.60-5.2); RDW 14.6 % (11.6-15.6); WHITE BLOOD COUNT 3.8 K/mm3 (4.0-10.0)
[2020-08-21 13:44] LABS: CHLORIDE 109 mmol/L (98-107); SODIUM 141 mmol/L (136-145)
[2020-08-21 13:46] LABS: ALBUMIN 4.1 g/dl (3.4-5.0); ANION GAP 5 MMOL/L (8-16); CALCIUM 9.5 mg/dL (8.5-10.1); CO2 26 mmol/L (21-32)
[2020-08-21 13:47] LABS: GLUCOSE,RANDOM 81 mg/dL (74-106); MAGNESIUM 2.4 mg/dL (1.8-2.4)
[2020-08-21 13:49] LABS: SGOT/AST 26 U/L (15-37); SGPT/ALT 23 U/L (13-61)
[2020-08-21 13:50] LABS: PHOSPHOROUS 3.2 mg/dL (2.5-4.9)
[2020-08-21 13:51] LABS: BILIRUBIN,TOTAL 0.5 mg/dL (0.2-1); TOT PROT 6.9 g/dl (6.4-8.2)
[2020-08-21 13:52] LABS: ALK PHOS 70 U/L (45-117)
[2020-08-21 13:52] LABS: PH,URINE 7.5 (5.0-8.0); URINE APPEARANCE CLEAR; URINE BILIRUBIN NEGATIVE (NEGATIVE); URINE COLOR YELLOW; URINE GLUCOSE (UA) NEGATIVE (NEGATIVE); URINE KETONE NEGATIVE (NEGATIVE); URINE LEUK ESTERASE NEGATIVE (NEGATIVE); URINE NITRITE NEGATIVE (NEGATIVE); URINE PROTEIN NEGATIVE (NEGATIVE); URINE UROBILINOGEN 0.2 mg/dL (0.2-1.0)
[2020-08-21 14:09] LABS: CREATININE 0.6 mg/dL (0.55-1.3)
[2020-08-21] MEDS ORDERED: ACETAMINOPHEN 500 MG TABLET (FP) PO ONE (18:54)
[2020-08-21] MEDS ORDERED: ACETAMINOPHEN 325 MG TABLET (FP) PO ONE (19:24)
[2020-08-21] MEDS ORDERED: ACETAMINOPHEN 325 MG TABLET (FP) ONE (19:27)
[2020-08-22 00:30] VITALS: BMI 21.4
[2020-08-22 05:41] VITALS: TEMP 98.1
[2020-08-22 08:09] LABS: EOS % 0.1 % (0-4.5); HEMOGLOBIN 12.8 GM/dL (10.7-15.3); LYMPH % 33.2 % (8-40); MCH 29.8 pg (25.7-33.7); MCHC 32.9 g/dl (32.0-36.0); MEAN CELL VOLUME 90.6 fl (80-96); MEAN PLT VOLUME 8.3 fl (7.5-11.1); MONO % 4.4 % (3.8-10.2); NEUT % 61.3 % (42.8-82.8); PLATELET COUNT 280 10^3/uL (134-434); RBC 4.31 M/mm3 (3.60-5.2); RDW 14.7 % (11.6-15.6); WHITE BLOOD COUNT 3.3 K/mm3 (4.0-10.0)
[2020-08-22 08:31] LABS: CHLORIDE 112 mmol/L (98-107); SODIUM 145 mmol/L (136-145)
[2020-08-22 08:40] LABS: ALBUMIN 3.6 g/dl (3.4-5.0); BLOOD UREA NITROGEN 16.4 mg/dL (7-18)
[2020-08-22 08:41] LABS: ANION GAP 7 MMOL/L (8-16); BILIRUBIN,TOTAL 0.5 mg/dL (0.2-1); CALCIUM 9.2 mg/dL (8.5-10.1); CO2 26 mmol/L (21-32); GLUCOSE,RANDOM 80 mg/dL (74-106); MAGNESIUM 2.2 mg/dL (1.8-2.4); SGOT/AST 13 U/L (15-37); SGPT/ALT 19 U/L (13-61)
[2020-08-22 08:43] LABS: ALK PHOS 64 U/L (45-117)
[2020-08-22 08:44] LABS: CREATININE 0.7 mg/dL (0.55-1.3)
[2020-08-22] MEDS ORDERED: amLODIPine BESYLATE 5 MG TABLET (FP) PO SCH (10:00)
[2020-08-22] MEDS ORDERED: HEPARIN NA (PORCINE) 5,000 UNITS/ML 1ML VIAL SQ SCH (10:00)
[2020-08-22 11:24] LABS: TRIGLYCERIDES 36 mg/dL (0-150)
[2020-08-22 11:25] LABS: CHOLESTEROL 182 mg/dL (50-200); LDL CHOLESTEROL (ONLY SJRH) 96 mg/dL (5-100)
[2020-08-22 11:27] LABS: HDL CHOLESTEROL 76 mg/dL (40-60)
[2020-08-22 15:01] VITALS: BP 144/64; PULSE 85
== END 2020-08-22 15:34 | disposition home or self-care (01) | DRG 310 ==
LOC: JER 11:31 → JERBED 16:12 → J4W 23:57
PROVIDERS: ADMIT Family Medicine; ATTEND Family Medicine
DX: R00.2 Palpitations (principal); F32.9 Major depressive disorder, single episode, unspecified; I10 Essential (primary) hypertension; I45.10 Unspecified right bundle-branch block
CPT/HCPCS: 36415; 71046-TC-FY; 80053; 80061; 81003; 82550; 83721; 83735; 84100; 84443; 84484; 85025; 87086; 93005; 93010; 93971-TC; 99285-25; C9803; J1644; U0003; U0005

== ENCOUNTER 2021-11-15 12:23 | Emergency (ER) | payer OTHER ==
[2021-11-15 12:36] VITALS: RESP 18; TEMP 98; BMI 20.7
[2021-11-15] MEDS ORDERED: ACETAMINOPHEN 325 MG TABLET (FP) PO ONE (12:45)
[2021-11-15] MEDS ORDERED: ACETAMINOPHEN 325 MG TABLET (FP) ONE (12:47)
[2021-11-15 14:03] VITALS: BP 176/82; PULSE 75
== END 2021-11-15 14:14 | disposition home or self-care (01) ==
LOC: FER 12:23
DX: R42 Dizziness and giddiness (principal); R03.0 Elevated blood-pressure reading, without diagnosis of hypertension
CPT/HCPCS: 70450-TC; 99284-25

== ENCOUNTER 2021-11-20 11:33 | Emergency (ER) | payer OTHER ==
[2021-11-20 11:40] VITALS: BP 150/68; PULSE 86; RESP 16; TEMP 98; BMI 20.7
[2021-11-20] MEDS ORDERED: ACETAMINOPHEN 325 MG TABLET (FP) PO ONE (12:34)
[2021-11-20] MEDS ORDERED: ACETAMINOPHEN 325 MG TABLET (FP) ONE (12:38)
[2021-11-20 13:10] LABS: INR 0.96 (0.83-1.09)
[2021-11-20 13:11] LABS: HEMATOCRIT 37.1 % (32.4-45.2); MCH 31.6 pg (25.7-33.7); MEAN CELL VOLUME 90.3 fl (80-96); MEAN PLT VOLUME 7.6 fl (7.5-11.1); PLATELET COUNT 330.8 10^3/uL (134-434); RBC 4.11 10^6/uL (3.60-5.2); RDW 14.8 % (11.6-15.6); WHITE BLOOD COUNT 5.2 10^3/uL (4.0-10.8)
[2021-11-20 13:13] LABS: ACTIVATED PTT 32.4 SECONDS (25.2-36.5)
[2021-11-20 13:19] LABS: ALBUMIN 4.2 g/dl (3.4-5.0); BILIRUBIN,TOTAL 0.7 mg/dl (0.2-1); CALCIUM 9.7 mg/dl (8.5-10); CREATININE 0.7 mg/dl (0.55-1.3); TOT PROT 6.6 g/dl (6.4-8.2)
[2021-11-20 13:31] LABS: PLATELET ESTIMATE ADEQUATE
== END 2021-11-20 15:25 | disposition home or self-care (01) ==
LOC: FER 11:33
DX: R51.9 Headache, unspecified (principal)
CPT/HCPCS: 0241U-QW; 36415; 70450-TC; 71045-TC-FY; 80053; 84484; 85025; 85610; 85730; 93005; 99285-25

== ENCOUNTER 2021-11-25 07:23 | Inpatient (IN) | payer OTHER ==
[2021-11-25 08:37] LABS: BILIRUBIN,TOTAL 0.6 mg/dl (0.2-1); CALCIUM 9.5 mg/dl (8.5-10); CREATININE 0.7 mg/dl (0.55-1.3); HEMATOCRIT 36.5 % (32.4-45.2); HEMOGLOBIN 12.5 G/dL (10.7-15.3); MCH 31.1 pg (25.7-33.7); MCHC 34.1 g/dl (32.0-36.0); MEAN PLT VOLUME 7.8 fl (7.5-11.1); PLATELET COUNT 331.1 10^3/uL (134-434); RBC 4.01 10^6/uL (3.60-5.2); RDW 14.4 % (11.6-15.6); TOT PROT 6.4 g/dl (6.4-8.2); WHITE BLOOD COUNT 3.6 10^3/uL (4.0-10.8)
[2021-11-25 08:41] LABS: INR 0.92 (0.83-1.09); PROTHROMBIN TIME (PATIENT) 10.6 SEC (9.7-13.0)
[2021-11-25 08:44] LABS: ACTIVATED PTT 30.5 SECONDS (25.2-36.5)
[2021-11-25 09:19] LABS: PLATELET ESTIMATE ADEQUATE
[2021-11-25 09:36] LABS: EPITHELIAL CELLS MANY /hpf
[2021-11-25] MEDS ORDERED: ACETAMINOPHEN 325 MG TABLET (FP) PO ONE (09:51)
[2021-11-25] MEDS ORDERED: ACETAMINOPHEN 325 MG TABLET (FP) ONE (09:53)
[2021-11-25] MEDS ORDERED: hydrALAZINE HCL 20 MG/ML VIAL IVPUSH PRN (12:12)
[2021-11-25] MEDS ORDERED: metoPROLOL SUCCINATE 25 MG TAB.SR.24H (FP) PO SCH (12:15)
[2021-11-25] MEDS ORDERED: PATIENT'S OWN MEDICATION (NON-FORMULARY) (Olmesartan Medoxomil [Olmesartan Medoxomil] 20 M PO SCH (12:15)
[2021-11-25] MEDS ORDERED: LOSARTAN POTASSIUM 50 MG TABLET PO SCH (12:30)
[2021-11-25 13:00] VITALS: BMI 21.9
[2021-11-25] MEDS: LOSARTAN POTASSIUM 50 MG TABLET PO SCH (13:48)
[2021-11-25] MEDS: ASPIRIN COATED 81 MG TABLET.EC PO SCH (13:48)
[2021-11-25 15:06] LABS: CHOLESTEROL 213 mg/dl (50-200); HDL CHOLESTEROL 87 mg/dl (40-60)
[2021-11-25 15:08] LABS: TRIGLYCERIDES 23 mg/dl (0-150)
[2021-11-25 15:51] LABS: LDL CHOLESTEROL (ONLY SJRH) 122 mg/dL (5-100)
[2021-11-25] MEDS ORDERED: ACETAMINOPHEN 325 MG TABLET (FP) PO PRN (18:35)
[2021-11-25] MEDS ORDERED: PRAMIPEXOLE DIHYDROCHLORIDE 0.125 MG TABLET PO SCH (20:00)
[2021-11-25] MEDS: hydrALAZINE HCL 25 MG TABLET (FP) PO SCH (21:13)
[2021-11-25] MEDS: HEPARIN NA (PORCINE) 5,000 UNITS/ML 1ML VIAL SQ SCH (21:13)
[2021-11-25] MEDS ORDERED: DIVALPROEX NA *ER* EXTEND REL 250 MG TABLET.SA PO SCH (22:00)
[2021-11-25] MEDS ORDERED: ATORVASTATIN CA 40 MG TABLET (FP) PO SCH (22:00)
[2021-11-26] MEDS: hydrALAZINE HCL 25 MG TABLET (FP) PO SCH (06:50)
[2021-11-26 08:12] LABS: ALBUMIN 3.4 g/dl (3.4-5.0); BILIRUBIN,TOTAL 0.6 mg/dl (0.2-1); CALCIUM 8.9 mg/dl (8.5-10); CREATININE 0.6 mg/dl (0.55-1.3); MAGNESIUM 1.9 mg/dL (1.8-2.4); TOT PROT 5.4 g/dl (6.4-8.2)
[2021-11-26 09:20] VITALS: BP 130/60; PULSE 74; RESP 17; TEMP 97.9
[2021-11-26] MEDS: ASPIRIN COATED 81 MG TABLET.EC PO SCH (09:21)
[2021-11-26] MEDS: LOSARTAN POTASSIUM 50 MG TABLET PO SCH (09:21)
[2021-11-26] MEDS: HEPARIN NA (PORCINE) 5,000 UNITS/ML 1ML VIAL SQ SCH (09:21)
[2021-11-26 10:04] LABS: BASO % 0.7 % (0-2.0); HEMATOCRIT 34.9 % (32.4-45.2); HEMOGLOBIN 11.7 GM/dL (10.7-15.3); LYMPH % 32.6 % (8-40); MCH 30.5 pg (25.7-33.7); MCHC 33.6 g/dl (32.0-36.0); MEAN CELL VOLUME 90.6 fl (80-96); MEAN PLT VOLUME 7.9 fl (7.5-11.1); MONO % 5.6 % (3.8-10.2); NEUT % 61.1 % (42.8-82.8); PLATELET COUNT 300 10^3/uL (134-434); RBC 3.85 M/mm3 (3.60-5.2); RDW 13.9 % (11.6-15.6); WHITE BLOOD COUNT 3.3 K/mm3 (4.0-10.0)
== END 2021-11-26 11:17 | disposition home or self-care (01) | DRG 103 ==
LOC: FER 07:23 → FM/S 11:56
PROVIDERS: ADMIT Family Medicine; ATTEND Family Medicine
DX: G43.709 Chronic migraine without aura, not intractable, without status migrainosus (principal); I10 Essential (primary) hypertension; I35.1 Nonrheumatic aortic (valve) insufficiency; E78.5 Hyperlipidemia, unspecified; R42 Dizziness and giddiness; R20.2 Paresthesia of skin; R47.81 Slurred speech; R20.0 Anesthesia of skin
CPT/HCPCS: 36415; 70450-TC; 70551-TC; 71045-TC-FY; 80053; 80061; 81003; 81015; 83036; 83735; 84443; 84484; 85025; 85610; 85730; 86850; 86900; 86901; 87086; 93005; 93880-TC; 99285-25; C9803-CS; J1644; U0003; U0005

== ENCOUNTER 2022-04-30 10:22 | Emergency (ER) | payer OTHER ==
[2022-04-30 10:59] VITALS: BP 160/71; PULSE 85; RESP 16; TEMP 97.9; BMI 20.7
[2022-04-30] MEDS ORDERED: ACETAMINOPHEN 500 MG TABLET (FP) PO ONE (10:59)
[2022-04-30] MEDS ORDERED: ACETAMINOPHEN 500 MG TABLET (FP) ONE (11:05)
== END 2022-04-30 12:02 | disposition home or self-care (01) ==
LOC: FER 10:22
DX: R05.1 Acute cough (principal); J02.9 Acute pharyngitis, unspecified; R19.7 Diarrhea, unspecified; Z20.822 Contact with and (suspected) exposure to COVID-19
CPT/HCPCS: 0241U-QW; 71046-TC-FY; 87651; 99284-25

== ENCOUNTER 2023-02-24 19:29 | Observation (INO) | payer OTHER ==
[2023-02-24] MEDS ORDERED: SODIUM CHLORIDE 0.9% 500 ML INFUS.BAG IV ONE (20:22)
[2023-02-24 20:58] LABS: HEMATOCRIT 36.4 % (32.4-45.2); HEMOGLOBIN 12.4 G/dL (10.7-15.3); MCH 30.6 pg (25.7-33.7); MCHC 33.9 g/dl (32.0-36.0); MEAN CELL VOLUME 90.3 fl (80-96); MEAN PLT VOLUME 8.3 fl (7.5-11.1); PLATELET COUNT 256.8 10^3/uL (134-434); RBC 4.03 10^6/uL (3.60-5.2); RDW 15.4 % (11.6-15.6); WHITE BLOOD COUNT 8.2 10^3/uL (4.0-10.8)
[2023-02-24 21:08] LABS: ALBUMIN 4.1 g/dl (3.4-5.0); BILIRUBIN,TOTAL 0.5 mg/dl (0.2-1); CALCIUM 9.4 mg/dl (8.5-10.1); CREATININE 0.7 mg/dl (0.6-1.3); POTASSIUM 3.5 mmol/L (3.5-5.1); TOT PROT 6.1 g/dl (6.4-8.2)
[2023-02-24] MEDS ORDERED: AMOX TR/POT CLAV 500MG/125MG TABLETS (FP) PO ONE (23:03)
[2023-02-24] MEDS ORDERED: ACETAMINOPHEN 325 MG TABLET (FP) PO PRN (23:06)
[2023-02-24] MEDS ORDERED: DOCUSATE SODIUM 100 MG CAPSULE (FP) PO PRN (23:06)
[2023-02-24] MEDS ORDERED: ASPIRIN 81 MG CHEWABLE TABLETS PO ONE (23:16)
[2023-02-24] MEDS ORDERED: AMOX TR/POT CLAV 500MG/125MG TABLETS (FP) ONE (23:17)
[2023-02-25 00:32] VITALS: BMI 21.5
[2023-02-25] MEDS ORDERED: ACETAMINOPHEN 1000 MG/100 ML BAG IVPB PRN (01:29)
[2023-02-25] MEDS ORDERED: BENZOCAINE/MENTHOL (CHLORASEPTIC ) LOZENGE MM PRN (01:31)
[2023-02-25] MEDS ORDERED: MELATONIN 5 MG TABLETS PO PRN (01:32)
[2023-02-25] MEDS ORDERED: guaiFENesin/D-METHORPHAN HB 10 ML UNIT-DOSE CUPS PO PRN (01:32)
[2023-02-25] MEDS ORDERED: BENZOCAINE/MENTH/CETYLPYRD CL 1 EACH LOZENGE MM PRN (07:21)
[2023-02-25 08:03] VITALS: RESP 19
[2023-02-25 08:25] LABS: INR 1.01 (0.83-1.09); PROTHROMBIN TIME (PATIENT) 11.7 SEC (9.7-13.0)
[2023-02-25 08:27] LABS: ACTIVATED PTT 30.6 SECONDS (25.2-36.5)
[2023-02-25 08:41] LABS: HEMATOCRIT 36.3 % (32.4-45.2); HEMOGLOBIN 11.7 G/dL (10.7-15.3); MCH 29.1 pg (25.7-33.7); MCHC 32.3 g/dl (32.0-36.0); MEAN CELL VOLUME 90.1 fl (80-96); MEAN PLT VOLUME 8.4 fl (7.5-11.1); PLATELET COUNT 257.6 10^3/uL (134-434); RBC 4.03 10^6/uL (3.60-5.2); RDW 15.5 % (11.6-15.6); WHITE BLOOD COUNT 6.7 10^3/uL (4.0-10.8)
[2023-02-25 08:54] LABS: CALCIUM 9.3 mg/dl (8.5-10.1); CREATININE 0.6 mg/dl (0.6-1.3); MAGNESIUM 1.9 mg/dL (1.8-2.4); PHOSPHOROUS 2.4 (2.5-4.9); POTASSIUM 3.7 mmol/L (3.5-5.1)
[2023-02-25] MEDS ORDERED: CEFTRIAXONE 1 GM in DEXTROSE 5%-WATER - 50 ML IVPB SCH (10:00)
[2023-02-25] MEDS ORDERED: AZITHROMYCIN 250 MG TABLET PO SCH (10:00)
[2023-02-25] MEDS ORDERED: LOSARTAN POTASSIUM 50 MG TABLET PO SCH (12:00)
[2023-02-25] MEDS ORDERED: ASPIRIN 81 MG CHEWABLE TABLETS PO SCH (12:00)
[2023-02-25 13:31] LABS: CHOLESTEROL 166 mg/dl (50-200); HDL CHOLESTEROL 69 mg/dl (40-60)
[2023-02-25 13:43] VITALS: BP 143/62; PULSE 91; TEMP 98.3
[2023-02-25 14:35] LABS: LDL CHOLESTEROL (ONLY SJRH) 88 mg/dL (5-100)
[2023-02-25] MEDS ORDERED: ROSUVASTATIN CA 20 MG TABLET PO SCH (22:00)
[2023-02-26] MEDS ORDERED: ACETAMINOPHEN 325 MG TABLET (FP) PO PRN (01:30)
== END 2023-02-25 16:50 | disposition home or self-care (01) ==
LOC: FER 19:29 → FM/S 23:18
PROVIDERS: ADMIT Student in an Organized Health Care Education/Training Program; ATTEND Internal Medicine
PROC: 3E03329 Introduction of Other Anti-infective into Peripheral Vein, Percutaneous Approach (ICD-10-PCS; principal; 2023-02-24)
PROC: 3E033NZ Introduction of Analgesics, Hypnotics, Sedatives into Peripheral Vein, Percutaneous Approach (ICD-10-PCS; 2023-02-24)
DX: J01.01 Acute recurrent maxillary sinusitis (principal); I10 Essential (primary) hypertension; E78.5 Hyperlipidemia, unspecified; R26.2 Difficulty in walking, not elsewhere classified; G45.9 Transient cerebral ischemic attack, unspecified; I77.9 Disorder of arteries and arterioles, unspecified
CPT/HCPCS: 0241U-QW; 36415; 70450-TC; 70486-TC; 70490-TC; 70551-TC; 71045-TC-FY; 80048; 80053; 80061; 82607; 82746; 83036; 83735; 84100; 84443; 85027; 85610; 85730; 93005; 96365; 96375; 99285-25; G0378

== ENCOUNTER 2023-10-22 13:42 | Emergency (ER) | payer OTHER ==
[2023-10-22 14:29] VITALS: RESP 18; TEMP 98; BMI 21.0
[2023-10-22] MEDS: SODIUM CHLORIDE 0.9% 500 ML INFUS.BAG IV ONE (15:30)
[2023-10-22 15:44] LABS: HEMATOCRIT 38.9 % (32.4-45.2); HEMOGLOBIN 12.6 G/dL (10.7-15.3); MCH 29.6 pg (25.7-33.7); MCHC 32.5 g/dl (32.0-36.0); MEAN CELL VOLUME 91.1 fl (80-96); MEAN PLT VOLUME 8.5 fl (7.5-11.1); PLATELET COUNT 231.7 10^3/uL (134-434); RBC 4.27 10^6/uL (3.60-5.2); RDW 15.3 % (11.6-15.6); WHITE BLOOD COUNT 3.9 10^3/uL (4.0-10.8)
[2023-10-22 15:48] LABS: PLATELET ESTIMATE ADEQUATE
[2023-10-22 15:52] LABS: ALBUMIN 4.3 g/dl (3.4-5.0); BILIRUBIN,TOTAL 0.4 mg/dl (0.2-1); CALCIUM 10.2 mg/dl (8.5-10.1); CREATININE 0.9 mg/dl (0.6-1.3); POTASSIUM 3.8 mmol/L (3.5-5.1); TOT PROT 6.2 g/dl (6.4-8.2)
[2023-10-22 17:22] VITALS: BP 126/75; PULSE 79
== END 2023-10-22 17:20 | disposition home or self-care (01) ==
LOC: FER 13:42
DX: U07.1 COVID-19 (principal); R42 Dizziness and giddiness; R91.1 Solitary pulmonary nodule; R07.0 Pain in throat
CPT/HCPCS: 0241U-QW; 36415; 70450-TC; 71045-TC-FY; 71250-TC; 80053; 84484; 85025; 93005; 99285-25